=== PATIENT | female | born 1980 | race Two or more races ===

== ENCOUNTER 2018-04-23 21:46 | Inpatient (IN) | payer OTHER ==
[2018-04-23] MEDS ORDERED: NS 1,000 ML IV ONE (22:09)
[2018-04-23] MEDS ORDERED: ONDANSETRON 4 MG/2 ML VIAL IVP ONE (22:09)
--- NOTE | 2018-04-23 22:11 | EDPHY ---
H & P Stated Complaint: N/v, R side abd pain, unable to eat Time Seen by Provider: 04/23/18 21:54 HPI/ROS: Chief Complaint: Abdominal pain HPI: 37-year-old woman presenting with 2 days of central and right-sided abdominal pain. Pain is constant. Is currently 6/10. Feels better after she eats. Primarily right upper side and right flank as well. She did have some fevers and chills 4 days ago but those resolved. No cough. No diarrhea or constipation. No dark tarry stools or blood in per rectum. Has no chest pain or shortness of breath. She does have a history of a tubal ligation in the past. Last menstrua period was 1/2 months ago. ROS: 10 systems were reviewed and were negative except those elements noted in the HPI. PMH: Denies Social History: No smoking, no alcohol, no recreational drug use Family History: non-contributory Physical Exam: Gen: Awake, Alert, No Distress HEENT: Nose: no rhinorrhea Eyes: PERRLA, EOMI Mouth: Moist mucosa Neck: Supple, no JVD Chest: nontender, lungs clear to auscultation Heart: S1, S2 normal, no murmur Abd: Soft, moderate right upper quadrant tenderness, no guarding Back: Right moderate CVA tenderness, no midline tenderness Ext: no edema, non-tender Skin: no rash Neuro: CN II-XII intact, Sensation grossly intact, Strength 5/5 in bilateral upper and lower extremities - Personal History LMP (Females 10-55): Irregular Current Tetanus Diphtheria and Acellular Pertussis (TDAP): No - Medical/Surgical History Hx Asthma: No Hx Chronic Respiratory Disease: No Hx Diabetes: No Hx Cardiac Disease: No Hx Renal Disease: No Hx Cirrhosis: No Hx Alcoholism: No Hx HIV/AIDS: No Hx Splenectomy or Spleen Trauma: No Other PMH: Denies - Social History Smoking Status: Never smoked Constitutional: Initial Vital Signs Temperature (C) 37.1 C 04/23/18 21:50 Heart Rate 107 H 04/23/18 21:50 Respiratory Rate 17 04/23/18 21:50 Blood Pressure 122/48 H 04/23/18 21:50 O2 Sat (%) 100 04/23/18 21:50 O2 Delivery Mode Nasal Cannula O2 (L/minute) 2 Allergies/Adverse Reactions: No Known Allergies Allergy (Unverified 04/23/18 21:49) Medical Decision Making - Diagnostics Imaging Results: Imaging Impressions Abdomen CT 04/23/18 23:02 Impression: 1. Heterogeneous decreased enhancement right kidney suggestive of pyelonephritis versus less likely focal infarcts. 2. No CT evidence of appendicitis, abscess or bowel obstruction. 3. Mild thickening of the gallbladder wall and mild biliary ductal dilatation. If indicated, consider correlation at some point with right upper quadrant ultrasound to evaluate for possible gallstones and choledocholithiasis. 4. Mild splenomegaly. 5. Mildly enlarged uterus with fluid in the endometrial canal. 6. Umbilical hernia containing omental fat. Findings discussed with Dank Shields MD at 23:47 hour, 04/23/2018. ED Course/Re-evaluation: 37-year-old with abdominal pain weakness. Initial CBC results noted. Patient is mildly tachycardic, normotensive. Rectal exam performed by oh, brown stool. Sent for Hemoccult. Further questioning patient denies any menorrhagia any blood per rectum. Has had weakness for the past several days. Order CT scan of the abdomen. Type and screen. Plan for admission. Repeat i-STAT H&H from a direct blood draw confirms the patient's anemia. Pt anemia confirmed. Patient mildly tachycardic with a borderline blood pressure. IV fluids ordered. She does meet SIRS criteria. No focus of infection. CT scan results noted. Questionable pyelonephritis however urinalysis is negative. Possible choledocholithiasis. Will obtain ultrasound. Discussed with hospitalist. Plan for admission. Serum lactate is normal. Blood has been ordered. Ultrasound ordered of the the gallbladder. Common bile ductal dilatation with a pancreatic ductal stone. The hospitalist has discussed with GI. Plan for consultation. Patient is receiving blood. Critical Care Time: I spent a total of 40 minutes of critical care time in obtaining history, performing a physical exam, bedside monitoring of interventions, collecting and interpreting tests and discussion with consultants but not including time spent performing procedures. - Data Points Laboratory Results: Laboratory Results 04/23/18 22:15 04/23/18 22:15 04/24/18 04/24/18 04/23/18 01:09 00:00 23:01 WBC RBC Hgb POC Hgb 6.5 gm/dL L gm/dL (12.6-16.3) Hct POC Hct 19 % L % (38-47) MCV MCH MCHC RDW Plt Count MPV Neut % (Auto) Lymph % (Auto) [place] % (Auto) Eos % (Auto) Baso % (Auto) Nucleat RBC Rel Count Absolute Neuts (auto) Absolute Lymphs (auto) Absolute Monos (auto) Absolute Eos (auto) Absolute Basos (auto) Absolute Nucleated RBC Immature Gran % Immature Gran # Platelet Estimate Polychromasia Hypochromasia Microcytic Cells Oval Macrocytes Elliptocytes Smear Review By Absolute Retic Percent Retic VBG Lactic Acid 0.8 mmol/L mmol/L (0.7-2.1) POC Sodium 140 mEq/L mEq/L (135-145) Sodium POC Potassium 2.7 mEq/L L* mEq/L (3.3-5.0) Potassium POC Chloride 105 mEq/L mEq/L (97-110) Chloride Carbon Dioxide POC Total CO2 21 mEq/L L mEq/L (22-31) Anion Gap POC BUN 7 mg/dL mg/dL (7-23) BUN Creatinine POC Creatinine 0.8 mg/dL mg/dL (0.6-1.0) Estimated GFR Glucose POC Glucose 133 mg/dL H mg/dL (70-100) Calcium Iron TIBC Iron Saturation Ferritin Total Bilirubin AST ALT Alkaline Phosphatase Total Protein Albumin Lipase Beta HCG, Qual Urine Color YELLOW Urine Appearance CLEAR Urine pH 6.0 (5.0-7.5) Ur Specific [place] 1.017 (1.002-1.030) Urine Protein NEGATIVE (NEGATIVE) Urine Ketones NEGATIVE (NEGATIVE) Urine Blood NEGATIVE (NEGATIVE) Urine Nitrate NEGATIVE (NEGATIVE) Urine Bilirubin NEGATIVE (NEGATIVE) Urine Urobilinogen 4.0 EU H EU (0.2-1.0) Ur Leukocyte Esterase NEGATIVE (NEGATIVE) Urine Glucose NEGATIVE (NEGATIVE) Stool Occult Bld Scrn Patient ABO/Rh Antibody Screen Crossmatch IS Only 04/23/18 04/23/18 04/23/18 23:00 22:37 22:15 WBC RBC Hgb POC Hgb Hct POC Hct MCV MCH MCHC RDW Plt Count MPV Neut % (Auto) Lymph % (Auto) [place] % (Auto) Eos % (Auto) Baso % (Auto) Nucleat RBC Rel Count Absolute Neuts (auto) Absolute Lymphs (auto) Absolute Monos (auto) Absolute Eos (auto) Absolute Basos (auto) Absolute Nucleated RBC Immature Gran % Immature Gran # Platelet Estimate Polychromasia Hypochromasia Microcytic Cells Oval Macrocytes Elliptocytes Smear Review By Absolute Retic Percent Retic VBG Lactic Acid POC Sodium Sodium POC Potassium Potassium POC Chloride Chloride Carbon Dioxide POC Total CO2 Anion Gap POC BUN BUN Creatinine POC Creatinine Estimated GFR Glucose POC Glucose Calcium Iron 19.0 mcg/dL L mcg/dL (37.0-170.0) TIBC 312 ug/dL ug/dL (260-490) Iron Saturation 6 % L % (20-55) Ferritin 20.4 ng/mL ng/mL (6.2-264.0) Total Bilirubin AST ALT Alkaline Phosphatase Total Protein Albumin Lipase Beta HCG, Qual Urine Color Urine Appearance Urine pH Ur Specific [place] Urine Protein Urine Ketones Urine Blood Urine Nitrate Urine Bilirubin Urine Urobilinogen Ur Leukocyte Esterase Urine Glucose Stool Occult Bld Scrn NEGATIVE (NEGATIVE) Patient ABO/Rh B POSITIVE Antibody Screen NEGATIVE Crossmatch IS Only See Detail 04/23/18 04/23/18 04/23/18 22:15 22:15 22:15 WBC RBC Hgb POC Hgb Hct 19.8 % L % (38.0-47.0) POC Hct MCV MCH MCHC RDW Plt Count MPV Neut % (Auto) Lymph % (Auto) [place] % (Auto) Eos % (Auto) Baso % (Auto) Nucleat RBC Rel Count Absolute Neuts (auto) Absolute Lymphs (auto) Absolute Monos (auto) Absolute Eos (auto) Absolute Basos (auto) Absolute Nucleated RBC Immature Gran % Immature Gran # Platelet Estimate Polychromasia Hypochromasia Microcytic Cells Oval Macrocytes Elliptocytes Smear Review By Absolute Retic 0.030 10^6/uL L 10^6/uL (0.050-0.117) Percent Retic 1.18 % % (0.98-2.67) VBG Lactic Acid POC Sodium Sodium 131 mEq/L L mEq/L (135-145) POC Potassium Potassium 3.0 mEq/L L mEq/L (3.5-5.2) POC Chloride Chloride 103 mEq/L mEq/L (97-110) Carbon Dioxide 20 mEq/l L mEq/l (22-31) POC Total CO2 Anion Gap 8 mEq/L mEq/L (6-14) POC BUN BUN 10 mg/dL mg/dL (7-23) Creatinine 0.9 mg/dL mg/dL (0.6-1.0) POC Creatinine Estimated GFR > 60 Glucose 155 mg/dL H mg/dL (70-100) POC Glucose Calcium 7.9 mg/dL L mg/dL (8.5-10.4) Iron TIBC Iron Saturation Ferritin Total Bilirubin 1.1 mg/dL mg/dL (0.1-1.4) AST 40 IU/L IU/L (14-46) ALT 62 IU/L H IU/L (9-52) Alkaline Phosphatase 211 IU/L H IU/L (38-126) Total Protein 6.5 g/dL g/dL (6.3-8.2) Albumin 3.1 g/dL L g/dL (3.5-5.0) Lipase 130 IU/L IU/L (23-300) Beta HCG, Qual NEGATIVE Urine Color Urine Appearance Urine pH Ur Specific [place] Urine Protein Urine Ketones Urine Blood Urine Nitrate Urine Bilirubin Urine Urobilinogen Ur Leukocyte Esterase Urine Glucose Stool Occult Bld Scrn Patient ABO/Rh Antibody Screen Crossmatch IS Only 04/23/18 22:15 WBC 12.12 10^3/uL H 10^3/uL (3.80-9.50) RBC 2.80 10^6/uL L 10^6/uL (4.18-5.33) Hgb 5.3 g/dL L* g/dL (12.6-16.3) POC Hgb Hct 20.0 % L % (38.0-47.0) POC Hct MCV 71.4 fL L fL (81.5-99.8) MCH 18.9 pg L pg (27.9-34.1) MCHC 26.5 g/dL L g/dL (32.4-36.7) RDW 19.9 % H % (11.5-15.2) Plt Count 251 10^3/uL 10^3/uL (150-400) MPV 10.5 fL fL (8.7-11.7) Neut % (Auto) 80.8 % H % (39.3-74.2) Lymph % (Auto) 9.6 % L % (15.0-45.0) [place] % (Auto) 7.8 % % (4.5-13.0) Eos % (Auto) 0.4 % L % (0.6-7.6) Baso % (Auto) 0.2 % L % (0.3-1.7) Nucleat RBC Rel Count 0.2 % % (0.0-0.2) Absolute Neuts (auto) 9.80 10^3/uL H 10^3/uL (1.70-6.50) Absolute Lymphs (auto) 1.16 10^3/uL 10^3/uL (1.00-3.00) Absolute Monos (auto) 0.95 10^3/uL H 10^3/uL (0.30-0.80) Absolute Eos (auto) 0.05 10^3/uL 10^3/uL (0.03-0.40) Absolute Basos (auto) 0.02 10^3/uL 10^3/uL (0.02-0.10) Absolute Nucleated RBC 0.02 10^3/uL H 10^3/uL (0-0.01) Immature Gran % 1.2 % H % (0.0-1.1) Immature Gran # 0.14 10^3/uL H 10^3/uL (0.00-0.10) Platelet Estimate ADEQUATE (ADEQ) Polychromasia 2+ H Hypochromasia 3+ H Microcytic Cells 2+ H Oval Macrocytes 1+ H Elliptocytes 1+ H Smear Review By Pending Absolute Retic Percent Retic VBG Lactic Acid POC Sodium Sodium POC Potassium Potassium POC Chloride Chloride Carbon Dioxide POC Total CO2 Anion Gap POC BUN BUN Creatinine POC Creatinine Estimated GFR Glucose POC Glucose Calcium Iron TIBC Iron Saturation Ferritin Total Bilirubin AST ALT Alkaline Phosphatase Total Protein Albumin Lipase Beta HCG, Qual Urine Color Urine Appearance Urine pH Ur Specific [place] Urine Protein Urine Ketones Urine Blood Urine Nitrate Urine Bilirubin Urine Urobilinogen Ur Leukocyte Esterase Urine Glucose Stool Occult Bld Scrn Patient ABO/Rh Antibody Screen Crossmatch IS Only Medications Given: Acetaminophen (Tylenol) 650 mg PO Q4HRS PRN PRN Reason: Pain, Mild/Fever, Can Take PO Stop: 10/21/18 00:36 Last Admin: 04/24/18 02:39 Dose: 650 mg Piperacillin/Tazobactam/Dextrose (Zosyn 3.375 Gm (Premix)) 50 mls @ 100 mls/hr IV Q6HRS KAYODE PRN Reason: Protocol Stop: 05/24/18 00:59 Last Admin: 04/24/18 01:18 Dose: 50 mls Discontinued Medications Sodium Chloride (Ns) 1,000 mls @ 0 mls/hr IV ONCE ONE; Wide Open PRN Reason: Protocol Stop: 04/23/18 22:10 Last Admin: 04/23/18 22:20 Dose: 1,000 mls Sodium Chloride (Ns) 1,000 mls @ 0 mls/hr IV ONCE ONE PRN Reason: Wide Open Stop: 04/24/18 00:59 Last Admin: 04/24/18 01:34 Dose: 1,000 mls Ondansetron HCl (Zofran) 4 mg IVP EDNOW ONE Stop: 04/23/18 22:10 Last Admin: 04/23/18 22:21 Dose: 4 mg Potassium Chloride (Klor-Con) 40 meq PO ONCE ONE Stop: 04/24/18 04:05 Last Admin: 04/24/18 05:32 Dose: 20 meq Point of Care Test Results: Chemistry 04/23/18 23:01 POC Sodium 140 mEq/L mEq/L (135-145) POC Potassium 2.7 mEq/L L* mEq/L (3.3-5.0) POC Chloride 105 mEq/L mEq/L (97-110) POC Total CO2 21 mEq/L L mEq/L (22-31) POC BUN 7 mg/dL mg/dL (7-23) POC Creatinine 0.8 mg/dL mg/dL (0.6-1.0) POC Glucose 133 mg/dL H mg/dL (70-100) ISTAT H&H 04/23/18 23:01 POC Hgb 6.5 gm/dL L gm/dL (12.6-16.3) POC Hct 19 % L % (38-47) Departure - Departure Disposition: [facility] Acute Clinical Impression: Abdominal pain, Anemia Condition: Serious
[2018-04-23 22:48] LABS: PLATELET COUNT 251 10^3/uL (150-400)
[2018-04-23] MEDS ORDERED: IOPAMIDOL (ISOVUE-300) 100 ML BTL ONE (23:16)
[2018-04-24] MEDS ORDERED: PROMETHAZINE HCL 25 MG/ML INJ IVP PRN (00:37)
[2018-04-24] MEDS ORDERED: ONDANSETRON 4 MG/2 ML VIAL IVP PRN (00:37)
[2018-04-24] MEDS ORDERED: ONDANSETRON DISINTEGRATING 4 MG TAB PO PRN (00:37)
[2018-04-24] MEDS ORDERED: NS 1,000 ML IV SCH ×2 (00:45→20:00)
[2018-04-24] MEDS ORDERED: NS 1,000 ML IV ONE (00:58)
[2018-04-24] MEDS ORDERED: ACETAMINOPHEN 500 MG TAB ONE (01:06)
[2018-04-24] MEDS: ACETAMINOPHEN 325 MG TAB PO PRN ×4 (01:08→19:57)
[2018-04-24] MEDS ORDERED: PIPERACILLIN/TAZO 3.375 GM/DEX 50 ML IV ONE (01:15)
[2018-04-24] MEDS: PIPERACILLIN/TAZO 3.375 GM/DEX 50 ML IV SCH ×3 (01:18→12:32)
--- NOTE | 2018-04-24 04:11 | PDGENHP ---
History and Physical - Chief Complaint Flank pain - History of Present Illness 37 yo F w/ minimal PMHx presents with R flank pain. She tells me the R flank pain has been progressive in nature for the past few days. She has also noted subjective fevers and chills. She denies dysuria or frequency. On further questioning she also has noted fatigue for the last few weeks. She denies any signs of bleeding. Her last period was about 2 months ago. She denies melena or BRBPR. She has no medical history and takes no regular medications aside from occasional NSAIDs for pain. She has not seen her PCP in at least a year. Evaluation in the ED is notable for severe anemia as well as fever. CT demonstrated biliary dilation. This was followed by RUQ U/S, which confirmed cholelithiasis, CBD dilation (11 mm), and stone visualized at the head of the pancreas. Her temperature has risen to >39 while in the ED. She is being admitted for evaluation of severe anemia and suspected cholangitis. Case discussed with ED physician Dr. Shields and GI Dr. Ramos. Records reviewed and summarized above. History Information - Allergies/Home Medication List Allergies/Adverse Reactions: No Known Allergies Allergy (Unverified 04/23/18 21:49) I have personally reviewed and updated: family history, medical history - Past Medical History no pertinent PMH - Surgical History Reports: hernia repair - Family History Additional family history: Asked, denies - Social History Smoking Status: Never smoked Review of Systems Review of Systems: ROS: 10pt was reviewed & negative except for what was stated in HPI & below Physical Exam Physical Exam: Temp Pulse Resp BP Pulse Ox 39 C H 87 20 101/55 L 95 04/24/18 02:36 04/24/18 03:30 04/24/18 03:30 04/24/18 03:30 04/24/18 03:30 O2 (L/minute) 2 Constitutional: appears nourished, uncomfortable Eyes: PERRL, EOMI Ears, Nose, Mouth, Throat: moist mucous membranes, no oral mucosal ulcers Cardiovascular: systolic murmur, tachycardia Respiratory: no respiratory distress, clear to auscultation Gastrointestinal: normoactive bowel sounds, tenderness (R flank), No mancia's sign Skin: warm, normal color Musculoskeletal: full muscle strength, no muscle tenderness Neurologic: AAOx3, CN II-XII Intact Psychiatric: interacting appropriately, not anxious Lab Data & Imaging Review 04/23/18 22:15 04/23/18 22:15 WBC 12.12 10^3/uL (3.80-9.50) H 04/23/18 22:15 RBC 2.80 10^6/uL (4.18-5.33) L 04/23/18 22:15 Hgb 5.3 g/dL (12.6-16.3) L* 04/23/18 22:15 POC Hgb 6.5 gm/dL (12.6-16.3) L 04/23/18 23:01 Hct 19.8 % (38.0-47.0) L 04/23/18 22:15 POC Hct 19 % (38-47) L 04/23/18 23:01 MCV 71.4 fL (81.5-99.8) L 04/23/18 22:15 MCH 18.9 pg (27.9-34.1) L 04/23/18 22:15 MCHC 26.5 g/dL (32.4-36.7) L 04/23/18 22:15 RDW 19.9 % (11.5-15.2) H 04/23/18 22:15 Plt Count 251 10^3/uL (150-400) 04/23/18 22:15 MPV 10.5 fL (8.7-11.7) 04/23/18 22:15 Neut % (Auto) 80.8 % (39.3-74.2) H 04/23/18 22:15 Lymph % (Auto) 9.6 % (15.0-45.0) L 04/23/18 22:15 [place] % (Auto) 7.8 % (4.5-13.0) 04/23/18 22:15 Eos % (Auto) 0.4 % (0.6-7.6) L 04/23/18 22:15 Baso % (Auto) 0.2 % (0.3-1.7) L 04/23/18 22:15 Nucleat RBC Rel Count 0.2 % (0.0-0.2) 04/23/18 22:15 Absolute Neuts (auto) 9.80 10^3/uL (1.70-6.50) H 04/23/18 22:15 Absolute Lymphs (auto) 1.16 10^3/uL (1.00-3.00) 04/23/18 22:15 Absolute Monos (auto) 0.95 10^3/uL (0.30-0.80) H 04/23/18 22:15 Absolute Eos (auto) 0.05 10^3/uL (0.03-0.40) 04/23/18 22:15 Absolute Basos (auto) 0.02 10^3/uL (0.02-0.10) 04/23/18 22:15 Absolute Nucleated RBC 0.02 10^3/uL (0-0.01) H 04/23/18 22:15 Immature Gran % 1.2 % (0.0-1.1) H 04/23/18 22:15 Immature Gran # 0.14 10^3/uL (0.00-0.10) H 04/23/18 22:15 Platelet Estimate ADEQUATE (ADEQ) 04/23/18 22:15 Polychromasia 2+ H 04/23/18 22:15 Hypochromasia 3+ H 04/23/18 22:15 Microcytic Cells 2+ H 04/23/18 22:15 Oval Macrocytes 1+ H 04/23/18 22:15 Elliptocytes 1+ H 04/23/18 22:15 Absolute Retic 0.030 10^6/uL (0.050-0.117) L 04/23/18 22:15 Percent Retic 1.18 % (0.98-2.67) 04/23/18 22:15 VBG Lactic Acid 0.8 mmol/L (0.7-2.1) 04/24/18 01:09 POC Sodium 140 mEq/L (135-145) 04/23/18 23:01 Sodium 131 mEq/L (135-145) L 04/23/18 22:15 POC Potassium 2.7 mEq/L (3.3-5.0) L* 04/23/18 23:01 Potassium 3.0 mEq/L (3.5-5.2) L 04/23/18 22:15 POC Chloride 105 mEq/L (97-110) 04/23/18 23:01 Chloride 103 mEq/L (97-110) 04/23/18 22:15 Carbon Dioxide 20 mEq/l (22-31) L 04/23/18 22:15 POC Total CO2 21 mEq/L (22-31) L 04/23/18 23:01 Anion Gap 8 mEq/L (6-14) 04/23/18 22:15 POC BUN 7 mg/dL (7-23) 04/23/18 23:01 BUN 10 mg/dL (7-23) 04/23/18 22:15 Creatinine 0.9 mg/dL (0.6-1.0) 04/23/18 22:15 POC Creatinine 0.8 mg/dL (0.6-1.0) 04/23/18 23:01 Estimated GFR > 60 04/23/18 22:15 Glucose 155 mg/dL (70-100) H 04/23/18 22:15 POC Glucose 133 mg/dL (70-100) H 04/23/18 23:01 Calcium 7.9 mg/dL (8.5-10.4) L 04/23/18 22:15 Total Bilirubin 1.1 mg/dL (0.1-1.4) 04/23/18 22:15 AST 40 IU/L (14-46) 04/23/18 22:15 ALT 62 IU/L (9-52) H 04/23/18 22:15 Alkaline Phosphatase 211 IU/L (38-126) H 04/23/18 22:15 Total Protein 6.5 g/dL (6.3-8.2) 04/23/18 22:15 Albumin 3.1 g/dL (3.5-5.0) L 04/23/18 22:15 Lipase 130 IU/L (23-300) 04/23/18 22:15 Beta HCG, Qual NEGATIVE 04/23/18 22:15 Urine Color YELLOW 04/24/18 00:00 Urine Appearance CLEAR 04/24/18 00:00 Urine pH 6.0 (5.0-7.5) 04/24/18 00:00 Ur Specific [place] 1.017 (1.002-1.030) 04/24/18 00:00 Urine Protein NEGATIVE (NEGATIVE) 04/24/18 00:00 Urine Ketones NEGATIVE (NEGATIVE) 04/24/18 00:00 Urine Blood NEGATIVE (NEGATIVE) 04/24/18 00:00 Urine Nitrate NEGATIVE (NEGATIVE) 04/24/18 00:00 Urine Bilirubin NEGATIVE (NEGATIVE) 04/24/18 00:00 Urine Urobilinogen 4.0 EU (0.2-1.0) H 04/24/18 00:00 Ur Leukocyte Esterase NEGATIVE (NEGATIVE) 04/24/18 00:00 Urine Glucose NEGATIVE (NEGATIVE) 04/24/18 00:00 Stool Occult Bld Scrn NEGATIVE (NEGATIVE) 04/23/18 23:00 Patient ABO/Rh B POSITIVE 04/23/18 22:37 Antibody Screen NEGATIVE 04/23/18 22:37 Crossmatch IS Only See Detail 04/23/18 22:37 Imaging Review: Imaging Impressions Abdomen CT 04/23/18 23:02 Impression: 1. Heterogeneous decreased enhancement right kidney suggestive of pyelonephritis versus less likely focal infarcts. 2. No CT evidence of appendicitis, abscess or bowel obstruction. 3. Mild thickening of the gallbladder wall and mild biliary ductal dilatation. If indicated, consider correlation at some point with right upper quadrant ultrasound to evaluate for possible gallstones and choledocholithiasis. 4. Mild splenomegaly. 5. Mildly enlarged uterus with fluid in the endometrial canal. 6. Umbilical hernia containing omental fat. Findings discussed with Dank Shields MD at 23:47 hour, 04/23/2018. Assessment & Plan Assessment: 37 yo F presents with severe anemia and likely cholangitis. Plan: 1. Sepsis - Sepsis per 3/4 SIRS criteria (HR, WBC, T) present on admission. Most likely due to cholangitis noting RUQ/R flank pain and dilated CBD duct with stone visualized at the head of the pancreas. CT did demonstrate decreased enhancement in the right kidney suggestive of pyelonephritis, but her UA is non- infectious appearing and she denies urinary symptoms. - S/p 30 mL/kg fluid bolus - Zosyn IV for broad coverage - Blood and urine cultures pending - I discussed the case with Dr. Ramos of GI who requested patient be made NPO for likely ERCP this morning 2. Microcytic anemia - H/H 5.3/20 on admission. Patient denies signs of bleeding. Her last menstrual cycle was 2 months ago. Iron deficiency is likely, unclear if additional etiology is present. FOBT negative. - 2 u pRBCs to transfuse now - Will check iron panel, retic count, B12, TSH - Monitor CBC 3. Hypokalemia - Replete PRN 4. Decreased enhancement right kidney - suggestive of pyelonephritis versus less likely focal infarcts per radiology. Pyelonephritis seems less likely noting non-infectious UA and lack of urinary symptoms. - Monitor BMP Diet - NPO Code - Full Ppx - SCDs Dispo - Admit under inpatient status
[2018-04-24] MEDS: POTASSIUM CL 20 MEQ TAB PO ONE ×2 (05:32→06:01)
[2018-04-24 05:40] LABS: PLATELET COUNT 240 10^3/uL (150-400)
[2018-04-24] MEDS: POTASSIUM Cl (KCl) 40 MEQ in NS 1,000 ML IV SCH ×2 (06:02→17:40)
[2018-04-24] MEDS ORDERED: POTASSIUM CL 20 MEQ TAB PO ONE (06:47)
[2018-04-24] MEDS: HYDROmorphONE/DILAUDID 1 MG/ML INJ IVP PRN ×2 (08:48→19:54)
--- NOTE | 2018-04-24 08:55 | HOSPPROG ---
Hospitalist Progress Note Assessment/Plan: # cholecystitis, cholangitis - plan ERCP today (Dr Ramos) - discussed with Dr Arechiga who will perform cholecystectomy - cont zosyn # fever - d/t above # uncontrolled pain - cont dilaudid IV # Fe defic anemia, severe - possible d/t gynecologic problems, possible slight DIC from infection - s/p 2U PRBC, will transfuse another 2U # enlarged uterus with endometrial canal fluid - reports having her tubes tied 7 years ago - discussed with Dr Sevilla - likely ok with outpatient fu; needs pelvic US, possible endometrial bx and chronic management of menses # hypoK - replete via IVF Subjective: still complains of R flank pain; she reports recent heavy menses, but no period for 2 months Objective: Vital Signs Temp Pulse Resp BP Pulse Ox 37.4 C 77 23 H 102/48 L 98 04/24/18 07:39 04/24/18 07:39 04/24/18 07:39 04/24/18 07:39 04/24/18 07:39 Laboratory Results 04/24/18 05:20 04/24/18 05:20 04/23/18 04/24/18 04/25/18 05:59 05:59 05:59 Intake Total 3200 Balance 3200 chart reviewed 35 mins of direct patient care time - Physical Exam Constitutional: uncomfortable Cardiovascular: regular rate and rhythym, no murmur, rub, or gallop Respiratory: no respiratory distress, no rales or rhonchi, clear to auscultation Gastrointestinal: normoactive bowel sounds, other (soft, R sided pain), No guarding, No rebound, No distension ICD10 Worksheet Patient Problems: Problems Problem Status Onset Abdominal pain Acute Anemia Acute
--- NOTE | 2018-04-24 11:01 | GCON ---
[f rep st] CONSULTATION GI INPATIENT CONSULTATION DATE OF CONSULTATION: 04/24/2018 I was kindly requested to see the patient by Dr. Chava Cortez in consultation for a chief complaint of right flank pain. She is a 37-year-old female who has had the above for several days, along with subjective fever and chills. She had presented to the emergency department and was admitted to the hospital. Workup has included a CT scan of the abdomen and pelvis with IV contrast, which shows decreased enhancement of the right kidney with wedge-shaped areas with lack of enhancement and mild perinephric stranding. This is versus a normal left kidney. She has a urine dipstick, but no urinalysis. Besides the above, CT and an ultrasound also showed gallstones with an 11 mm CBD , and only mild gallbladder wall thickening. There was a question on ultrasound of a possible 5 mm calculus in the distal common bile duct. Liver function tests yesterday included an AST of 62 with an ALT of 211 and an alkaline phosphatase of 211. Today, her transaminases are normal, and her alk phos has decreased to 155. Normal lipase. She was also found to be anemic on admission with hematocrit of 20%. Her iron saturation is 6%, normal ferritin. Normal B12. She does state she has heavy menses. She denies rectal bleeding, maroon stools, melena. PAST MEDICAL HISTORY: 1. As above. 2. Hernia repair. 3. Otherwise, noncontributory. No known drug allergies. OUTPATIENT MEDICATIONS: Include occasional nonsteroidals. INPATIENT MEDICATIONS: Include Zosyn. SOCIAL HISTORY: She does not smoke. FAMILY HISTORY: Negative for similar pyelonephritis. REVIEW OF SYSTEMS: Positive pertinent review of systems as per my HPI. Otherwise, a complete review of systems is negative. PHYSICAL EXAM: CONSTITUTIONAL: Nontoxic. Low-grade fever. SKIN: Warm, dry. EYES: Pupils equal, round, reactive to light and accommodation. EAR, NOSE, MOUTH, AND THROAT Oropharynx without masses, moist mucosa. CARDIOVASCULAR: Normal S2, normal PMI. RESPIRATORY: Lungs clear to auscultation and percussion anteriorly. GASTROINTESTINAL: Soft, nontender. However, she does have somewhat exquisite right flank pain. NEUROLOGIC: Grossly nonfocal, cranial nerves grossly intact. PSYCHIATRIC: Orientation, insight appropriate. MUSCULOSKELETAL: Strength grossly normal throughout, normal station. LABORATORIES: Include the above. Beta HCG negative. Normal TSH. Hemoccult negative. Hematocrit after transfusion 24.2%. Normal platelet count. White count slightly elevated at 11.6 thousand. Potassium 3.2. Total bilirubin is 2.2, but her direct is 0.6. ASSESSMENT: 1. Right flank pain, fever. This is her presenting complaint. I suspect this is actually due to right-sided pyelonephritis. Her history and exam are classic , with a CT suggestive of right kidney infection. 2. Gallstones. I doubt this is related to her right flank pain. 3. Elevated liver function tests on admission, with a mildly dilated common bile duct. Indeed, suspect she did have an incidental CBD stone caught by the above testing on presentation. However, suspect now her CBD stone has passed, with her liver tests normalizing. 4. Slightly elevated total bilirubin. However, normal direct bilirubin, so may be Gilbert's syndrome only. 5. Anemia. Suspect due to heavy menses only. However, she did present quite low, with hematocrit of 20%. Therefore, a gastric or colonic source is possible. PLAN: 1. Treatment of her pyelonephritis as per the hospitalist service. They are getting a urinalysis and culture. 2. Surgery has been consulted. It may not be unreasonable for her to get a laparoscopic cholecystectomy at some point, when she has recovered from her pyelonephritis. She is relatively young and most likely will have trouble from her gallbladder in the future. In addition, she did have suspected transient choledocholithiasis. 3. Probable recent choledocholithiasis. As above, however, suspect she passed the stone. No ERCP needed at this juncture. 4. Once she has recovered from her pyelonephritis, prior to discharge, we will perform an upper endoscopy and colonoscopy. We will place her on clear liquids for now, to make prepping easier in the future. 5. Recheck liver function tests tomorrow, but suspect they will continue to improve. If not, she will require ERCP. Thank you for allowing me to help in the management of this patient. /[id number]/MODL MTDD
--- NOTE | 2018-04-24 12:02 | PDMN ---
Medical Necessity Medical necessity: [facility] M160 sepsis an other febrile illness: tachycardia, leukocytosis, fever, M35 anemia: -37 yo F with R flank pain, fever, chills, fatigue, X couple weeks, most likely cholangitis, CT demonstrates decreased enhancement in R kidney suggestive of pyelonephritis, H/H 5.3/20.0- 2 units PRBC will be transfused pt will be NPO- anticipate > 2 MN ongoing med nec care, further monitoring, eval and tx.
[2018-04-24] MEDS ORDERED: methylPREDNISolone SOD SUCC 125 MG/2 ML VIAL ONE (12:22)
[2018-04-24] MEDS ORDERED: EPINEPHrine 1 MG/ML INJ ONE (12:22)
[2018-04-24] MEDS ORDERED: methylPREDNISolone SOD SUCC 125 MG/2 ML VIAL IVP ONE (12:38)
[2018-04-24] MEDS: PANTOPRAZOLE SODIUM 40 MG TAB PO SCH (12:40)
--- NOTE | 2018-04-24 15:29 | PDGENHP ---
History and Physical - Chief Complaint R sided back pain - History of Present Illness 37yo F who presented to the ED last evening with R sided back pain. On admission , was also found to be anemic and has since received packed cell transfusion. Describes a constant R sided back pain which has been present for the past few days. She denies any fevers or chills at home but does endorse 1 episode of vomiting yesterday prior to her presentation here at the ED. Pain persists on my exam. Denies abdominal pain currently. History Information - Allergies/Home Medication List Allergies/Adverse Reactions: No Known Allergies Allergy (Verified 04/24/18 08:54) Home Medications: Ibuprofen [Motrin (*)] 200 - 600 mg PO TID PRN 04/24/18 [Last Taken 04/23/18] I have personally reviewed and updated: medical history, social history, surgical history - Past Medical History no pertinent PMH - Surgical History Reports: hernia repair Additional surgical history: tubal ligation, open umbilical hernia at [facility] - Family History Additional family history: Asked, denies - Social History Smoking Status: Never smoked Review of Systems Review of Systems: ROS: 10pt was reviewed & negative except for what was stated in HPI & below Physical Exam Physical Exam: Temp Pulse Resp BP Pulse Ox 37.3 C 93 13 108/58 L 97 04/24/18 10:10 04/24/18 14:00 04/24/18 14:00 04/24/18 14:00 04/24/18 14:00 O2 (L/minute) 2 Constitutional: no apparent distress, appears nourished, not in pain Eyes: PERRL, anicteric sclera, EOMI Ears, Nose, Mouth, Throat: moist mucous membranes, hearing normal, ears appear normal, no oral mucosal ulcers Cardiovascular: regular rate and rhythym, no murmur, rub, or gallop, No edema Respiratory: no respiratory distress, no rales or rhonchi, clear to auscultation Gastrointestinal: normoactive bowel sounds, soft, non-tender abdomen, no palpable masses, other (inframumbilical scar c/e previous surgical history) Genitourinary: no bladder fullness, no bladder tenderness Skin: warm, normal color, no rashes or abrasions, no fluctuance, no induration, No mottled Musculoskeletal: full muscle strength, no muscle tenderness, normal joint ROM, no joint effusions Psychiatric: interacting appropriately, not anxious, not encephalopathic, thought process linear Lymph, Heme, Immunologic: no cervical LAD, no supraclavicular LAD Lab Data & Imaging Review 04/24/18 05:20 04/24/18 05:20 WBC 11.67 10^3/uL (3.80-9.50) H 04/24/18 05:20 RBC 3.17 10^6/uL (4.18-5.33) L 04/24/18 05:20 Hgb 6.9 g/dL (12.6-16.3) L 04/24/18 05:20 POC Hgb 6.5 gm/dL (12.6-16.3) L 04/23/18 23:01 Hct 24.2 % (38.0-47.0) L 04/24/18 05:20 POC Hct 19 % (38-47) L 04/23/18 23:01 MCV 76.3 fL (81.5-99.8) L 04/24/18 05:20 MCH 21.8 pg (27.9-34.1) L 04/24/18 05:20 MCHC 28.5 g/dL (32.4-36.7) L 04/24/18 05:20 RDW 20.2 % (11.5-15.2) H 04/24/18 05:20 Plt Count 240 10^3/uL (150-400) 04/24/18 05:20 MPV 10.3 fL (8.7-11.7) 04/24/18 05:20 Neut % (Auto) 79.8 % (39.3-74.2) H 04/24/18 05:20 Lymph % (Auto) 9.9 % (15.0-45.0) L 04/24/18 05:20 Alpine % (Auto) 8.7 % (4.5-13.0) 04/24/18 05:20 Eos % (Auto) 0.3 % (0.6-7.6) L 04/24/18 05:20 Baso % (Auto) 0.2 % (0.3-1.7) L 04/24/18 05:20 Nucleat RBC Rel Count 0.2 % (0.0-0.2) 04/24/18 05:20 Absolute Neuts (auto) 9.33 10^3/uL (1.70-6.50) H 04/24/18 05:20 Absolute Lymphs (auto) 1.15 10^3/uL (1.00-3.00) 04/24/18 05:20 Absolute Monos (auto) 1.01 10^3/uL (0.30-0.80) H 04/24/18 05:20 Absolute Eos (auto) 0.03 10^3/uL (0.03-0.40) 04/24/18 05:20 Absolute Basos (auto) 0.02 10^3/uL (0.02-0.10) 04/24/18 05:20 Absolute Nucleated RBC 0.02 10^3/uL (0-0.01) H 04/24/18 05:20 Immature Gran % 1.1 % (0.0-1.1) 04/24/18 05:20 Immature Gran # 0.13 10^3/uL (0.00-0.10) H 04/24/18 05:20 Platelet Estimate ADEQUATE (ADEQ) 04/24/18 05:20 Polychromasia 2+ H 04/24/18 05:20 Hypochromasia 2+ H 04/24/18 05:20 Microcytic Cells 2+ H 04/24/18 05:20 Oval Macrocytes 1+ H 04/24/18 05:20 Elliptocytes 1+ H 04/24/18 05:20 Smear Review By Abbey BROUSSARD MD 04/24/18 05:20 Absolute Retic 0.030 10^6/uL (0.050-0.117) L 04/23/18 22:15 Percent Retic 1.18 % (0.98-2.67) 04/23/18 22:15 VBG Lactic Acid 0.8 mmol/L (0.7-2.1) 04/24/18 01:09 POC Sodium 140 mEq/L (135-145) 04/23/18 23:01 Sodium 138 mEq/L (135-145) 04/24/18 05:20 POC Potassium 2.7 mEq/L (3.3-5.0) L* 04/23/18 23:01 Potassium 3.2 mEq/L (3.5-5.2) L 04/24/18 05:20 POC Chloride 105 mEq/L (97-110) 04/23/18 23:01 Chloride 112 mEq/L (97-110) H 04/24/18 05:20 Carbon Dioxide 20 mEq/l (22-31) L 04/24/18 05:20 POC Total CO2 21 mEq/L (22-31) L 04/23/18 23:01 Anion Gap 6 mEq/L (6-14) 04/24/18 05:20 POC BUN 7 mg/dL (7-23) 04/23/18 23:01 BUN 8 mg/dL (7-23) 04/24/18 05:20 Creatinine 0.8 mg/dL (0.6-1.0) 04/24/18 05:20 POC Creatinine 0.8 mg/dL (0.6-1.0) 04/23/18 23:01 Estimated GFR > 60 04/24/18 05:20 Glucose 105 mg/dL (70-100) H 04/24/18 05:20 POC Glucose 133 mg/dL (70-100) H 04/23/18 23:01 Calcium 7.2 mg/dL (8.5-10.4) L 04/24/18 05:20 Iron 19.0 mcg/dL (37.0-170.0) L 04/23/18 22:15 TIBC 312 ug/dL (260-490) 04/23/18 22:15 Iron Saturation 6 % (20-55) L 04/23/18 22:15 Ferritin 20.4 ng/mL (6.2-264.0) 04/23/18 22:15 Total Bilirubin 2.2 mg/dL (0.1-1.4) H 04/24/18 05:20 Conjugated Bilirubin 0.6 mg/dL (0.0-0.5) H 04/24/18 05:20 Unconjugated Bilirubin 1.6 mg/dL (0.0-1.1) H 04/24/18 05:20 AST 31 IU/L (14-46) 04/24/18 05:20 ALT 48 IU/L (9-52) 04/24/18 05:20 Alkaline Phosphatase 155 IU/L (38-126) H 04/24/18 05:20 Total Protein 5.9 g/dL (6.3-8.2) L 04/24/18 05:20 Albumin 2.6 g/dL (3.5-5.0) L 04/24/18 05:20 Lipase 130 IU/L (23-300) 04/23/18 22:15 Vitamin B12 700 pg/mL (239-931) 04/24/18 02:15 TSH 1.760 uIU/mL (0.465-4.680) 04/24/18 02:15 Beta HCG, Qual NEGATIVE 04/23/18 22:15 Urine Color YELLOW 04/24/18 00:00 Urine Appearance CLEAR 04/24/18 00:00 Urine pH 6.0 (5.0-7.5) 04/24/18 00:00 Ur Specific [place] 1.017 (1.002-1.030) 04/24/18 00:00 Urine Protein NEGATIVE (NEGATIVE) 04/24/18 00:00 Urine Ketones NEGATIVE (NEGATIVE) 04/24/18 00:00 Urine Blood NEGATIVE (NEGATIVE) 04/24/18 00:00 Urine Nitrate NEGATIVE (NEGATIVE) 04/24/18 00:00 Urine Bilirubin NEGATIVE (NEGATIVE) 04/24/18 00:00 Urine Urobilinogen 4.0 EU (0.2-1.0) H 04/24/18 00:00 Ur Leukocyte Esterase NEGATIVE (NEGATIVE) 04/24/18 00:00 Urine Glucose NEGATIVE (NEGATIVE) 04/24/18 00:00 Stool Occult Bld Scrn NEGATIVE (NEGATIVE) 04/23/18 23:00 Patient ABO/Rh B POSITIVE 04/23/18 22:37 Antibody Screen NEGATIVE 04/23/18 22:37 Crossmatch IS Only See Detail 04/23/18 22:37 Donor Blood Type B POS 04/24/18 13:13 Donor Unit # [id number] 04/24/18 13:13 Reaction Clerical Check DONE 04/24/18 13:13 Pre-Trans Blood Type B POSITIVE 04/24/18 13:13 Pre-Trans Vis Hemolysis NEGATIVE 04/24/18 13:13 Pre-Trans BROOKS NEGATIVE 04/24/18 13:13 Post-Trans Blood Type B POSITIVE 04/24/18 13:13 Post-Tx Visible Hemolys NEGATIVE 02/28/19 13:13 Visualized and Interpreted imaging results: Yes Interpretation: CT and US: gallstones, GBW thickened, CBD enlarged Assessment & Plan Assessment: Abdominal pain (Acute) Anemia (Acute) Plan: 37yo F c multiple medical issues and likely cholecystitis, ? choledocholithiasis - agree with medeical optimization - IV abx for poss cholangitis vs pyelo - to OR for lap marlin with IOc to interrogate CBD. Pt was evaluated and consented with medical equipment repair technician
--- NOTE | 2018-04-24 15:45 | ASMTCASEMG ---
Living Arrangements What is your living Answers: With Other Relative(s) arrangement? Who do you live with? Type Of Residence What kind of residence do Answers: Apartment you live in? Discharge Plan Comments Coordination Status Comments Notes: Patient is a 37yo female, Israeli speaking,who presents with severe anemia and likely cholangitis. Patient is self-pay, Lily notified to screen for emergency Medicaid. No therapies ordered at this time. D/C plan TBD. CM will follow. Date Signed: 04/24/2018 03:44 PM Electronically Signed By:Elizabeth Brown LCSW
[2018-04-25] MEDS ORDERED: NS 1,000 ML IV ONE (00:28)
[2018-04-25] MEDS: HYDROmorphONE/DILAUDID 1 MG/ML INJ IVP PRN ×3 (02:23→16:14)
[2018-04-25 03:55] LABS: PLATELET COUNT 279 10^3/uL (150-400)
[2018-04-25] MEDS ORDERED: IOPAMIDOL (ISOVUE-M 300) 15 ML VIAL ONE ×2 (06:45→08:22)
[2018-04-25] MEDS ORDERED: EPINEPHrine 1 MG/ML INJ ONE (06:45)
[2018-04-25] MEDS ORDERED: BUPIVACAINE 0.25% 30 ML SDV ONE (06:45)
--- NOTE | 2018-04-25 06:54 | PDANEPAE ---
ANE Past Medical History - Cardiovascular History Hx Hypertension: No Hx Arrhythmias: No Hx Chest Pain: No Hx Coronary Artery / Peripheral Vascular Disease: No Hx CHF / Valvular Disease: No Hx Palpitations: No - Pulmonary History Hx COPD: No Hx Asthma/Reactive Airway Disease: No Hx Recent Upper Respiratory Infection: No Hx Oxygen in Use at Home: No Hx Sleep Apnea: No Sleep Apnea Screening Result - Last Documented: Negative - Endocrine History Hx Diabetes: No Hypothyroid: No Hyperthyroid: No Obesity: no - Liver History Hx Hepatic Disorders: Yes - Other Health History Other Health History: Severe anemia - Chronic Pain History Chronic Pain: No ANE Review of Systems Review of Systems: - Exercise capacity METS (RN): 4 METS ANE Patient History - Allergies Allergies/Adverse Reactions: No Known Allergies Allergy (Verified 04/24/18 08:54) - Home Medications Home Medications: Ibuprofen [Motrin (*)] 200 - 600 mg PO TID PRN 04/24/18 [Last Taken 04/23/18] - NPO status NPO Since - Liquids (Date): 04/25/18 NPO Since - Liquids (Time): 00:00 NPO Since - Solids (Date): 04/24/18 NPO Since - Solids (Time): 18:00 - Smoking Hx Smoking Status: Never smoked ANE Labs/Vital Signs - Labs Result Diagrams: 04/25/18 03:45 04/25/18 03:45 - Vital Signs Vital Signs: reviewed preoperatively; see RN documention for details Blood Pressure: 89/48 Heart Rate: 57 Respiratory Rate: 16 O2 Sat (%): 98 Height: 157.48 cm Weight: 70.307 kg ANE Physical Exam - Airway Neck exam: FROM ANE Anesthesia Plan Anesthesia Plan: general endotracheal anesthesia
[2018-04-25] MEDS ORDERED: LR 1,000 ML IV ONE (07:13)
[2018-04-25] MEDS ORDERED: fentaNYL 100 MCG/2 ML INJ ONE ×6 (07:14→12:10)
[2018-04-25] MEDS ORDERED: PROPOFOL 200 MG/20 ML VIAL ONE (07:15)
[2018-04-25] MEDS ORDERED: ROCURONIUM 50 MG/5 ML VIAL ONE (07:18)
[2018-04-25] MEDS ORDERED: SUCCINYLCHOLINE CHLORIDE 200 MG/10 ML SYR IVP ONE (07:19)
[2018-04-25] MEDS ORDERED: METOCLOPRAMIDE 10 MG/2 ML VIAL ONE (07:20)
[2018-04-25] MEDS ORDERED: RANITIDINE 50 MG/2 ML VIAL ONE (07:21)
[2018-04-25] MEDS ORDERED: ePHEDrine SULFATE 25 MG/5 ML SYR ONE ×2 (07:33→08:14)
[2018-04-25] MEDS ORDERED: DEXAMETHASONE 4 MG/ML VIAL ONE (07:42)
[2018-04-25] MEDS ORDERED: ONDANSETRON 4 MG/2 ML VIAL ONE (07:55)
[2018-04-25] MEDS ORDERED: PHENYLEPHRINE HCL 100 MCG/ML SYR ONE (08:14)
[2018-04-25] MEDS ORDERED: NALOXONE HCL 0.4 MG/ML INJ IVP PRN ×3 (08:34→12:31)
[2018-04-25] MEDS ORDERED: PROMETHAZINE HCL 25 MG/ML INJ IVP PRN (08:34)
[2018-04-25] MEDS ORDERED: MEPERIDINE 25 MG/0.5 ML AMP IVP PRN (08:34)
[2018-04-25] MEDS ORDERED: ALBUTEROL 3 ML DEYVIAL IH PRN (08:34)
[2018-04-25] MEDS ORDERED: LR 500 ML IV PRN (08:34)
[2018-04-25] MEDS ORDERED: ONDANSETRON 4 MG/2 ML VIAL IVP PRN (08:34)
[2018-04-25] MEDS ORDERED: DEXAMETHASONE 4 MG/ML VIAL IVP PRN (08:34)
[2018-04-25] MEDS ORDERED: GLYCOPYRROLATE 0.2 MG/1 ML VIAL ONE ×2 (08:37→08:38)
[2018-04-25] MEDS ORDERED: NEOSTIGMINE METHYLSULFATE 5 MG/5 ML SYR ONE (08:38)
--- NOTE | 2018-04-25 09:04 | POSTOPPROG ---
Post Op Note Date of Operation: 04/25/18 Surgeon: Teddy Arechiga Anesthesiologist: Joi Anesthesia: GET(General Endotracheal) Pre-op Diagnosis: Cholecystitis Post-op Diagnosis: Cholecystitis, choledocholithiasis Procedure: Lap marlin with IOC Findings: edematous, swollen GBW. Multiple fulling defects Inf/Abcess present in the surg proc area at time of surgery?: No EBL: Minimal Specimen(s): GB
[2018-04-25] MEDS ORDERED: HYDROmorphONE/DILAUDID 2 MG/ML INJ ONE ×2 (09:14→12:10)
[2018-04-25] MEDS ORDERED: ACETAMINOPHEN 325 MG TAB ONE (09:15)
[2018-04-25] MEDS: fentaNYL 100 MCG/2 ML INJ IVP PRN ×3 (09:18→09:37)
[2018-04-25] MEDS: HYDROmorphONE/DILAUDID 2 MG/ML INJ IVP PRN ×3 (09:21→09:40)
[2018-04-25] MEDS ORDERED: PROPOFOL/EMULSION 500 MG/50 ML BOTTLE IV ONE (10:08)
--- NOTE | 2018-04-25 10:15 | POSTANESTH ---
Post Anesthetic Evaluation Cardiovascular Status: Normal, Stable Respiratory Status: Normal, Stable Level of Consciousness/Mental Status: Mildly Sleepy, Arousable Pain Control: Adequate, Prn Tx Ordered Nausea/Vomiting Control: Adequate, Prn Tx Ordered Complications Possibly Related to Anesthesia: None Noted
[2018-04-25] MEDS ORDERED: IOTHALAMATE MEG (CONRAY) 50 ML VIAL IV ONE (10:18)
--- NOTE | 2018-04-25 10:20 | PDANEPAE ---
ANE History of Present Illness 37 year old female s/p lap marlin today for ERCP to remove duct stones. History of iron deficiency anemia. Received blood transfusion this admission and developed an allergic reaction. Transfusion was discontinued. ANE Past Medical History - Cardiovascular History Hx Hypertension: No Hx Arrhythmias: No Hx Chest Pain: No Hx Coronary Artery / Peripheral Vascular Disease: No Hx CHF / Valvular Disease: No Hx Palpitations: No - Pulmonary History Hx COPD: No Hx Asthma/Reactive Airway Disease: No Hx Recent Upper Respiratory Infection: No Hx Oxygen in Use at Home: No Hx Sleep Apnea: No Sleep Apnea Screening Result - Last Documented: Negative - Endocrine History Hx Diabetes: No Hypothyroid: No Hyperthyroid: No Obesity: no - Liver History Hx Hepatic Disorders: Yes - Other Health History Other Health History: Severe anemia - Chronic Pain History Chronic Pain: No ANE Review of Systems Review of Systems: - Exercise capacity METS (RN): 4 METS ANE Patient History - Allergies Allergies/Adverse Reactions: No Known Allergies Allergy (Verified 04/24/18 08:54) - Home Medications Home Medications: Ibuprofen [Motrin (*)] 200 - 600 mg PO TID PRN 04/24/18 [Last Taken 04/23/18] - NPO status NPO Since - Liquids (Date): 04/25/18 NPO Since - Liquids (Time): 00:00 NPO Since - Solids (Date): 04/24/18 NPO Since - Solids (Time): 18:00 - Smoking Hx Smoking Status: Never smoked ANE Labs/Vital Signs - Labs Result Diagrams: 04/25/18 03:45 04/25/18 03:45 - Vital Signs Blood Pressure: 103/60 Heart Rate: 57 Respiratory Rate: 19 O2 Sat (%): 96 Height: 157.48 cm Weight: 70.307 kg ANE Physical Exam - Pulmonary Pulmonary: no respiratory distress - Cardiovascular Cardiovascular: regular rate and rhythym - ASA Status ASA Status: III (Could not evalutate airway secondary to patient sedation. No ROS done.) ANE Anesthesia Plan Anesthesia Plan: general endotracheal anesthesia
[2018-04-25] MEDS ORDERED: LABETALOL HCL 5 MG/ML 20 ML MDV IVP PRN ×2 (10:54→12:31)
[2018-04-25] MEDS ORDERED: fentaNYL 100 MCG/2 ML INJ IVP PRN ×2 (10:54→12:31)
[2018-04-25] MEDS ORDERED: INDOMETHACIN 50 MG SUPP PR ONE (11:01)
--- NOTE | 2018-04-25 12:19 | SOAPPROG ---
SOAP Progress Note Assessment/Plan: Assessment/Plan: 1. Pyelonephritis. GNR on urine cx. On levaquin. As per hospitalist. - d/c flagyl (not needed) 2. s/p marlin, with positive IOC for cbd stones. - ERCP today. Higher risk, being postop, with above infection, etc., but suspect will do well. 3. Anemia. Suspect heavy menses. Will check upper G.I. tract with EGD. 04/25/18 12:19 Subjective: cc: UTI No rigor, chills, sweats, vomiting. Objective: Vital Signs Temp Pulse Resp BP Pulse Ox 37.1 C 57 L 23 H 101/58 L 96 04/25/18 10:04 04/25/18 10:20 04/25/18 10:35 04/25/18 10:32 04/25/18 10:35 Laboratory Results 04/25/18 03:45 04/25/18 03:45 04/24/18 04/25/18 04/26/18 05:59 05:59 05:59 Intake Total 7499 600 Output Total 1000 10 Balance 6499 590 Physical Exam - Physical Exam General Appearance: WD/WN, alert, no apparent distress EENT: PERRL/EOMI, normal ENT inspection, pharynx normal, TMs normal Neck: non-tender, full range of motion, supple, normal inspection Respiratory: chest non-tender, lungs clear, normal breath sounds Cardiac/Chest: normal peripheral pulses, regular rate, rhythm Peripheral Pulses: 2+: carotid (R), carotid (L), femoral (R), femoral (L), dorsalis-pedis (R), dorsalis-pedis (L) Abdomen: normal bowel sounds, non-tender, soft Pelvic Exam: deferred Rectal: deferred Back: Normal inspection Skin: normal color, warm/dry Lymphatic: no adenopathy Extremities: normal range of motion, non-tender, normal inspection, normal capillary refill Neuro/Psych: no motor/sensory deficits, alert, normal mood/affect, oriented x 3 ICD10 Worksheet Patient Problems: Problems Problem Status Onset Abdominal pain Acute Anemia Acute
--- NOTE | 2018-04-25 12:28 | GIREPORT ---
[facility] - Endoscopy Department Patient Name: Nikki Burgos Procedure Date: 04/25/2018 10:23 AM Patient Type: Inpatient Attending MD/ ER Physician: Td Ramos MD Procedure: ERCP Indications: Filling defects on intraoperative cholangiogram Providers: Td Ramos MD, [facility] Referring MD: Teddy Arechiga MD; [facility] Hospitalist service Medicines: See the Anesthesia note for documentation of the administered medicatio ns Complications: No immediate complications. Description of Procedure: After obtaining informed consent, the scope was passed under direct vis ion. Throughout the procedure, the patient's blood pressure, pulse, and oxyg en saturations were monitored continuously. The Duodenalscope was introduc ed through the mouth, and advanced to the duodenum and used to inject cont rast into the bile duct. Findings: Normal esophagus, stomach, duodenum, ampulla. Bx done of the duodenum, to r/o a selective iron-deficiency sprue (doubt). Cholangiogram with four filling defects, with "square" shoulders, 1 cm each. No bile leak, etc. A 12 mm biliary sphincterotomy was made with a traction (standard) sphincterotome using ERBE electrocautery. There was no post-sphincterot panda bleeding. Then, a 12 mm balloon was used to try and individually remove d each stone, one at a time. However, despite four attempts, could not ev en remove the most distal. At that point, the decision was made to not spe nd an additional hour using a basket to remove the stones, as this might be u ndue risk to her cystic duct damir for leak. Instead, a 10 [address]ic biliary stent was placed, with good flow. Estimated Blood Loss: none. Post Op Diagnosis: - Four large, square stones, as above. Recommendation: - Stented, as above. For the next six weeks, with the stent in place, s he will be protected. During this time, the stones will "bang" against the stent, becoming smaller and softer. In addition, will use urosodiol for that six weeks, to soften them more. We will then perform an elective outpt. ERCP in about six weeks, to remove the stent and basket out the stones, at a time it will be safer for her cystic duct remnant. - clears, when o.k. with surgery - duodenal bx pending - we will see if she's clinically doing well enough tomorrow, to start a abraham bowel prep. We will then plan on doing an inpt. colonoscopy, for her adm'x Hct of 20%, prior to discharge. Thanks! Attending Participation: I personally performed the entire procedure. Rachel Appiah MD Td Ramos MD 04/25/2018 12:27:50 PM This report has been signed electronicallyPeter MD Rachel Number of Addenda: 0 Note Initiated On: 04/25/2018 10:23 AM [email or web address]
[2018-04-25] MEDS: D5W 1/2 NS W/ 20 KCl/L 1,000 ML IV SCH (13:18)
--- NOTE | 2018-04-25 13:36 | HOSPPROG ---
Hospitalist Progress Note Assessment/Plan: # cholecystitis, choledocholithiasis s/p cholecystectomy and ERCP with stone removal and stent placement - cont levaquin # ?pyelonephritis - this seems more reactive reactive than primary me given non- inflammatory urine on UA - GNR noted on UCx - covered by levaquin regardless # fever - d/t above # uncontrolled pain - should improve post-op - cont dilaudid IV # Fe defic anemia, severe - possible d/t gynecologic problems, possible slight DIC from infection - s/p 4U PRBC with improvement - planning colonoscopy to evaluate prior to dc # allergic reaction - transfusion reaction labs sent; also could be d/t zosyn - resolved # enlarged uterus with endometrial canal fluid - reports having her tubes tied 7 years ago - discussed with Dr Sevilla - likely ok with outpatient fu; needs pelvic US, possible endometrial bx and chronic management of menses # hypoK - replete via IVF Subjective: s/p cholecystectomy and ERCP Objective: Vital Signs Temp Pulse Resp BP Pulse Ox 36.5 C 51 L 14 103/44 L 97 04/25/18 13:06 04/25/18 13:06 04/25/18 13:06 04/25/18 13:06 04/25/18 13:06 Laboratory Results 04/25/18 03:45 04/25/18 03:45 04/24/18 04/25/18 04/26/18 05:59 05:59 05:59 Intake Total 7499 1150 Output Total 1000 10 Balance 6499 1140 high risk with two procedures today - Physical Exam Constitutional: other (somnolent but arousable) Cardiovascular: regular rate and rhythym, no murmur, rub, or gallop Respiratory: no respiratory distress, no rales or rhonchi, clear to auscultation Gastrointestinal: normoactive bowel sounds, other (soft, diffusely TTP), No guarding, No rebound ICD10 Worksheet Patient Problems: Problems Problem Status Onset Abdominal pain Acute Anemia Acute
[2018-04-25] MEDS: PANTOPRAZOLE SODIUM 40 MG TAB PO SCH ×2 (14:04→15:06)
[2018-04-25] MEDS: oxyCODONE IR 5 MG TAB PO PRN ×2 (18:35→21:18)
[2018-04-25] MEDS: URSODIOL 300 MG CAP PO SCH (20:31)
[2018-04-26] MEDS: oxyCODONE IR 5 MG TAB PO PRN ×5 (00:22→20:12)
[2018-04-26] MEDS: D5W 1/2 NS W/ 20 KCl/L 1,000 ML IV SCH (02:32)
[2018-04-26 04:39] LABS: PLATELET COUNT 298 10^3/uL (150-400)
[2018-04-26] MEDS: PANTOPRAZOLE SODIUM 40 MG TAB PO SCH (07:56)
[2018-04-26] MEDS: URSODIOL 300 MG CAP PO SCH ×2 (07:56→19:54)
[2018-04-26] MEDS: ACETAMINOPHEN 325 MG TAB PO PRN ×2 (07:58→15:49)
--- NOTE | 2018-04-26 12:27 | HOSPPROG ---
Hospitalist Progress Note Assessment/Plan: # cholecystitis, choledocholithiasis s/p cholecystectomy and ERCP with stone removal and stent placement - cont levaquin # ?pyelonephritis - this seems more reactive reactive than primary me given non- inflammatory urine on UA - GNR noted on UCx - covered by levaquin regardless # fever - d/t above # uncontrolled pain - improving; vo snot needed dilaudid IV today # Fe defic anemia, severe - s/p 4U PRBC with improvement - planning colonoscopy to evaluate prior to dc # allergic reaction - transfusion reaction labs sent; also could be d/t zosyn - resolved # enlarged uterus with endometrial canal fluid - reports having her tubes tied 7 years ago - discussed with Dr Sevilla - likely ok with outpatient fu - check pelvic US # hypoK - replete via IVF Subjective: tearful - complains of pain in her arm after having an iv placement attempt; mild abd pain; +BM Objective: Vital Signs Temp Pulse Resp BP Pulse Ox 36.8 C 66 14 109/65 94 04/26/18 11:03 04/26/18 11:03 04/26/18 11:03 04/26/18 11:03 04/26/18 11:03 Laboratory Results 04/26/18 04:15 04/26/18 04:15 04/25/18 04/26/18 04/27/18 05:59 05:59 05:59 Intake Total 7499 3150 Output Total 1000 10 Balance 6499 3140 - Physical Exam Constitutional: uncomfortable Cardiovascular: regular rate and rhythym, no murmur, rub, or gallop Respiratory: no respiratory distress, no rales or rhonchi, clear to auscultation Gastrointestinal: normoactive bowel sounds, no palpable masses, other (mild RUQ pain), No guarding, No rebound ICD10 Worksheet Patient Problems: Problems Problem Status Onset Abdominal pain Acute Anemia Acute
--- NOTE | 2018-04-26 13:29 | SOAPPROG ---
SOAP Progress Note Assessment/Plan: Assessment: STATUS POST LAP CHOLY AN ERCP FOR SEVERE CHOLECYSTITIS AND COMMON DUCT STONES/ STENT IN PLACE HEMATOCRIT STABLE/WBC 9 K/BILIRUBIN 8 ALTHOUGH THE PATIENT IS NONICTERIC/LFTS IMPROVED HEENT NONICTERIC WITHOUT ADENOPATHY CHEST CLEAR AND SYMMETRIC COR REGULAR RHYTHM ABDOMEN SOFT NONTENDER AFEBRILE/VITAL SIGNS STABLE/URINE OUTPUT ADEQUATE Plan: CLEAR LIQUIDS AND CONTINUE ANTIBIOTICS/HOME IN 1-2 DAYS ON ORAL ANTIBIOTICS 04/26/18 13:27 Objective: Vital Signs Temp Pulse Resp BP Pulse Ox 36.8 C 66 14 109/65 94 04/26/18 11:03 04/26/18 11:03 04/26/18 11:03 04/26/18 11:03 04/26/18 11:03 Laboratory Results 04/26/18 04:15 04/26/18 04:15 04/25/18 04/26/18 04/27/18 05:59 05:59 05:59 Intake Total 7499 3150 Output Total 1000 10 Balance 6499 3140 ICD10 Worksheet Patient Problems: Problems Problem Status Onset Abdominal pain Acute Anemia Acute
--- NOTE | 2018-04-26 15:12 | SOAPPROG ---
SOAP Progress Note Assessment/Plan: Assessment: Plan: 04/26/18 15:03 A/P 1. Anemia- suspect iron deficiency. Had evaluation of upper tract during ERCP examination. Recommend to proceed with colonoscopy. The risks, benefits, and alternatives were discussed with her in detail. NPO after midnight. Will prep with Golytely. 2. Choledocholithiasis- S/p ERCP. 04/26/18 15:13 Subjective: cc: Follow up with anemia. This is my first encounter with the patient. Complaining of pain on palpation. No fevers or chills. Objective: Vital Signs Temp Pulse Resp BP Pulse Ox 36.8 C 66 14 109/65 94 04/26/18 11:03 04/26/18 11:03 04/26/18 11:03 04/26/18 11:03 04/26/18 11:03 Laboratory Results 04/26/18 04:15 04/26/18 04:15 04/25/18 04/26/18 04/27/18 05:59 05:59 05:59 Intake Total 7499 3150 Output Total 1000 10 Balance 6499 3140 Physical Exam - Physical Exam General Appearance: alert, no apparent distress EENT: No scleral icterus (R), No scleral icterus (L) Respiratory: lungs clear, normal breath sounds, No crackles, No rales, No rhonchi Cardiac/Chest: regular rate, rhythm, No bradycardia, No tachycardia, No diastolic murmur, No systolic murmur Abdomen: soft, distended (minimal), No non-tender (tender in midepigastrium), No guarding, No rebound, No hepatomegaly, No splenomegaly Skin: normal color, warm/dry Extremities: normal inspection Neuro/Psych: alert, normal mood/affect, oriented x 3, No abnormal qa developer II-XII ICD10 Worksheet Patient Problems: Problems Problem Status Onset Abdominal pain Acute Anemia Acute
--- NOTE | 2018-04-26 16:05 | ASMTCMCOM ---
CM Note CM Note Notes: Patient is s/p lap marlin and ERCP for severe cholecystitis and common duct stones. Per surgery, can take clear liquids and d/c on oral abx in 1-2 days. GI is following and has ordered colonoscopy for tomorrow. I anticipate she will d/c home with her family shortly thereafter. CM available if needs change. Current CM discharge plan: home independent Date Signed: 04/26/2018 04:04 PM Electronically Signed By:Priyanka Durham RN
[2018-04-26] MEDS ORDERED: PEG 3350/NA SULF,BICARB,CL/KCL (GAVILYTE-G) 4000 ML BTL PO ONE (20:00)
[2018-04-27] MEDS: HYDROmorphONE/DILAUDID 1 MG/ML INJ IVP PRN ×2 (03:33→07:05)
[2018-04-27] MEDS: D5W 1/2 NS W/ 20 KCl/L 1,000 ML IV SCH (03:35)
--- NOTE | 2018-04-27 09:38 | HOSPPROG ---
Hospitalist Progress Note Assessment/Plan: # cholecystitis, choledocholithiasis s/p cholecystectomy and ERCP with stone removal and stent placement - cont levaquin # ?pyelonephritis - this seems more reactive reactive than primary to me given non-inflammatory urine on UA - GNR noted on UCx - covered by levaquin regardless # fever - d/t above # uncontrolled pain - improving; has not needed dilaudid IV today # Fe defic anemia, severe - s/p 4U PRBC with improvement - planning colonoscopy today # allergic reaction - transfusion reaction labs sent; also could be d/t zosyn - resolved # enlarged uterus with endometrial canal fluid - uterus WNL on pelvic US - reports having her tubes tied 7 years ago - discussed with Dr Roel hicks with outpatient fu # hypoK - resolved Subjective: c/o pain at umbilical incision; did colon prep overnight; on her period per RN Objective: Vital Signs Temp Pulse Resp BP Pulse Ox 36.5 C 69 17 113/59 L 98 04/27/18 08:00 04/27/18 08:00 04/27/18 08:00 04/27/18 08:00 04/27/18 08:00 Laboratory Results 04/26/18 04:15 04/27/18 04:27 04/26/18 04/27/18 04/28/18 05:59 05:59 05:59 Intake Total 3150 1050 Output Total 10 Balance 3140 1050 - Physical Exam Constitutional: no apparent distress, appears nourished Cardiovascular: regular rate and rhythym, no murmur, rub, or gallop Respiratory: no respiratory distress, no rales or rhonchi, clear to auscultation Gastrointestinal: normoactive bowel sounds, soft, non-tender abdomen, other ( incisions ok ) ICD10 Worksheet Patient Problems: Problems Problem Status Onset Abdominal pain Acute Anemia Acute
[2018-04-27] MEDS ORDERED: MAGNESIUM CITRATE 300 ML BOTTLE PO ONE (10:15)
[2018-04-27] MEDS: URSODIOL 300 MG CAP PO SCH ×2 (10:27→22:00)
[2018-04-27] MEDS: PANTOPRAZOLE SODIUM 40 MG TAB PO SCH (10:28)
[2018-04-27] MEDS: oxyCODONE IR 5 MG TAB PO PRN ×4 (10:32→22:01)
--- NOTE | 2018-04-27 11:26 | PDANEPAE ---
ANE History of Present Illness admitted with anemia and transfused 4 units PRBCs ANE Past Medical History - Cardiovascular History Hx Hypertension: No Hx Arrhythmias: No Hx Chest Pain: No Hx Coronary Artery / Peripheral Vascular Disease: No Hx CHF / Valvular Disease: No Hx Palpitations: No - Pulmonary History Hx COPD: No Hx Asthma/Reactive Airway Disease: No Hx Recent Upper Respiratory Infection: No Hx Oxygen in Use at Home: No Hx Sleep Apnea: No Sleep Apnea Screening Result - Last Documented: Negative - Endocrine History Hx Diabetes: No Hypothyroid: No Hyperthyroid: No Obesity: no - Renal History Hx Renal Disorders: No - Liver History Hx Hepatic Disorders: Yes - Other Health History Other Health History: Severe anemia - Chronic Pain History Chronic Pain: No ANE Review of Systems Review of systems is: negative Review of Systems: - Exercise capacity Exercise capacity: >=4 METS METS (RN): 4 METS ANE Patient History - Allergies Allergies/Adverse Reactions: No Known Allergies Allergy (Verified 04/24/18 08:54) - Home Medications Home medications: home medication list seen and reviewed Home Medications: Ibuprofen [Motrin (*)] 200 - 600 mg PO TID PRN 04/24/18 [Last Taken 04/23/18] - NPO status NPO Status: no food or drink >8 hours NPO Since - Liquids (Date): 04/25/18 NPO Since - Liquids (Time): 00:00 NPO Since - Solids (Date): 04/24/18 NPO Since - Solids (Time): 18:00 - Anes Hx Anes Hx: no prior problems - Smoking Hx Smoking Status: Never smoked ANE Labs/Vital Signs - Labs Result Diagrams: 04/26/18 04:15 04/27/18 04:27 - Vital Signs Vital Signs: reviewed preoperatively; see RN documention for details Blood Pressure: 113/59 Heart Rate: 69 Respiratory Rate: 17 O2 Sat (%): 98 Height: 157.48 cm Weight: 70.307 kg ANE Physical Exam - Airway Neck exam: FROM Mallampati Score: Class 2 Mouth exam: normal dental/mouth exam - Pulmonary Pulmonary: no respiratory distress - Cardiovascular Cardiovascular: regular rate and rhythym - ASA Status ASA Status: III ANE Anesthesia Plan Anesthesia Plan: GA with mask
[2018-04-27] MEDS ORDERED: PROPOFOL/EMULSION 500 MG/50 ML BOTTLE IV ONE (11:31)
[2018-04-27] MEDS ORDERED: NALOXONE HCL 0.4 MG/ML INJ IVP PRN (12:08)
--- NOTE | 2018-04-27 12:08 | POSTANESTH ---
Post Anesthetic Evaluation Cardiovascular Status: Normal, Stable Respiratory Status: Normal, Stable Level of Consciousness/Mental Status: Can Participate in Eval Pain Control: Adequate, Prn Tx Ordered Nausea/Vomiting Control: Adequate, Prn Tx Ordered Complications Possibly Related to Anesthesia: None Noted
--- NOTE | 2018-04-27 12:14 | GIREPORT ---
[facility] Surgical Services - Endoscopy Department Patient Name: Nikki Burgos Procedure Date: 04/27/2018 11:26 AM Patient Type: Inpatient Attending MD/ ER Physician: Elliot Dean MD Procedure: Colonoscopy Indications: Iron deficiency anemia Patient Profile: 37 year old female presents for evaluation of iron deficiency anemia. Providers: Elliot Dean MD Medicines: Monitored Anesthesia Care Complications: No immediate complications. Estimated blood loss: None. Description of Procedure: After obtaining informed consent, the scope was passed under direct vis ion. Throughout the procedure, the patient's blood pressure, pulse, and oxyg en saturations were monitored continuously. The Colonoscope with irrigatio n channel was introduced through the anus and advanced to the terminal il eum. The colonoscopy was performed without difficulty. The patient tolerated the procedure well. The quality of the bowel preparation was good. The term inal ileum, ileocecal valve, appendiceal orifice, and rectum were photograph ed. Findings: The perianal and digital rectal examinations were normal. Pertinent negatives include no palpable rectal lesions. The terminal ileum appeared normal. The entire examined colon appeared normal. Estimated Blood Loss: Estimated blood loss: none. Post Op Diagnosis: - The examined portion of the ileum was normal. - The entire examined colon is normal. - No specimens collected. - Etiology? No cause of anemia found. Recommend fo follow hemoglobin an d iron panel as outpatient. If doesnt increase, would consider capsule endoscopy as outpatient. GI will sign off. Thank you for the consultati on! Recommendation: - Discharge patient to home (with escort). - The signs and symptoms of potential delayed complications were discus sed with the patient. - Patient has a contact number available for emergencies. - Return to normal activities tomorrow. - Resume previous diet. - Continue present medications. - GI will sign off. - Thank you for the consultation! Attending Participation: I personally performed the entire procedure. Elliot Dean MD Elliot Dean MD 04/27/2018 12:14:34 PM This report has been signed electronicallyElliot Dean MD Number of Addenda: 0 Note Initiated On: 04/27/2018 11:26 AM Total Procedure Duration Time 0 hours 18 minutes 32 seconds [email or web address]
--- NOTE | 2018-04-27 13:13 | SOAPPROG ---
SOAP Progress Note Assessment/Plan: Assessment: STATUS POST LAP CHOLY AN ERCP FOR SEVERE CHOLECYSTITIS AND COMMON DUCT STONES/ STENT IN PLACE HEMATOCRIT STABLE/WBC 9 K/BILIRUBIN 8 ALTHOUGH THE PATIENT IS NONICTERIC/LFTS IMPROVED HEENT NONICTERIC WITHOUT ADENOPATHY CHEST CLEAR AND SYMMETRIC COR REGULAR RHYTHM ABDOMEN SOFT NONTENDER AFEBRILE/VITAL SIGNS STABLE/URINE OUTPUT ADEQUATE Plan: CLEAR LIQUIDS AND CONTINUE ANTIBIOTICS/HOME IN 1-2 DAYS ON ORAL ANTIBIOTICS 04/26/18 13:27 04/27/18 13:12 MUCH IMPROVED TODAY/AFEBRILE/VITAL SIGNS STABLE ABDOMEN SOFT NONDISTENDED AND NONTENDER/WOUNDS HEALING WELL TOLERATING P.O. WELL PLAN: A COLONOSCOPY TODAY FOR EVALUATION OF HER ANEMIA AND THEN PROBABLY HOME DEPENDING ON THE COLONOSCOPY FINDINGS Objective: Vital Signs Temp Pulse Resp BP Pulse Ox 36.8 C 63 17 122/75 H 96 04/27/18 12:17 04/27/18 12:17 04/27/18 12:17 04/27/18 12:17 04/27/18 12:17 Laboratory Results 04/26/18 04:15 04/27/18 04:27 04/26/18 04/27/18 04/28/18 05:59 05:59 05:59 Intake Total 3150 1050 400 Output Total 10 Balance 3140 1050 400 ICD10 Worksheet Patient Problems: Problems Problem Status Onset Abdominal pain Acute Anemia Acute
[2018-04-28 05:09] LABS: PLATELET COUNT 354 10^3/uL (150-400)
[2018-04-28 07:27] VITALS: BP 107/64
[2018-04-28] MEDS: ACETAMINOPHEN 325 MG TAB PO PRN (08:10)
[2018-04-28] MEDS: PANTOPRAZOLE SODIUM 40 MG TAB PO SCH (08:10)
[2018-04-28] MEDS: URSODIOL 300 MG CAP PO SCH (08:11)
--- NOTE | 2018-04-28 09:55 | ASMTDCNOTE ---
Case Management Discharge Discharge Order Complete? Answers: Yes Patient to Obtain Answers: via Family Medications Transportation Arranged Answers: Family/Friends Discharge Comments Notes: CM conferred with MD. Pt is being discharged independently. No CM needs identified. Family to transport. Date Signed: 04/28/2018 09:54 AM Electronically Signed By:CHADD Raymond
--- NOTE | 2018-04-28 09:56 | ASDISCHSUM ---
Discharge Information Plan Status:Home with No Needs Medically Cleared to Leave: Discharge Date: D/C Disposition:Home, Routine, Self-Care ADT D/C Disposition:Home, Routine, Self-Care Projected Discharge Date:04/28/2018 12:00 AM Transportation at D/C:Family Discharge Delay Reason: Follow-Up Date:04/28/2018 12:00 AM Discharge Slot: Final Diagnosis: Placement Information Patient Contact Information Contact Name:DONY Relationship:Jignesh Address:[address] City:[place] Alternate Phone: State/Zip Code:[place] [address] Email: Financial Information Financial Class:Self-Pay Primary Plan Desc:SP UNINSURED Primary Plan Number:99 Secondary Plan Desc: Secondary Plan Number: Assessment Information LACE LACE Length of stay for Answers: 4-6 days current admission Acuity / Level of Answers: Yes Care: Did the patient have an inpatient admission? # of Emergency department Answers: 1-2 visits in the last 6 months Score: 8 Date Signed: 04/28/2018 09:54 AM Electronically Signed By:CHADD Raymond [facility] Initial CM Assessment Living Arrangements What is your living Answers: With Other Relative(s) arrangement? Who do you live with? Type Of Residence What kind of residence do Answers: Apartment you live in? Discharge Plan Comments Coordination Status Comments Notes: Patient is a 37yo female, Uzbek speaking,who presents with severe anemia and likely cholangitis. Patient is self-pay, Lily notified to screen for emergency Medicaid. No therapies ordered at this time. D/C plan TBD. CM will follow. Date Signed: 04/24/2018 03:44 PM Electronically Signed By:Elizabeth Brown LCSW [facility] CM Progress Note CM Note CM Note Notes: Patient is s/p lap marlin and ERCP for severe cholecystitis and common duct stones. Per surgery, can take clear liquids and d/c on oral abx in 1-2 days. GI is following and has ordered colonoscopy for tomorrow. I anticipate she will d/c home with her family shortly thereafter. CM available if needs change. Current CM discharge plan: home independent Date Signed: 04/26/2018 04:04 PM Electronically Signed By:Priyanka Durham RN Case Management Discharge Plan Note Case Management Discharge Discharge Order Complete? Answers: Yes Patient to Obtain Answers: via Family Medications Transportation Arranged Answers: Family/Friends Discharge Comments Notes: CM conferred with . Pt is being discharged independently. No CM needs identified. Family to transport. Date Signed: 04/28/2018 09:54 AM Electronically Signed By:CHADD Raymond Intervention Information
--- NOTE | 2018-04-28 12:25 | GDS ---
[f rep st] DISCHARGE SUMMARY ALL DIAGNOSES: 1. Cholecystitis. 2. Choledocholithiasis. 3. Suspected secondary pyelonephritis. 4. Fevers. 5. Uncontrolled pain. 6. Iron-deficiency anemia. 7. Allergic reaction. 8. Enlarged uterus. 9. Heavy menses. 10. Hypokalemia. ALL PROCEDURES: 1. Cholecystectomy by Dr. Arechiga on 04/25/2018. 2. EGD and ERCP on 04/25/2018, by Dr. Ramos. 3. Colonoscopy by Dr. Dean on 04/27/2018. HOSPITAL COURSE: 37-year-old female presented with abdominal pain. Imaging findings were consistent with cholecystitis as well as choledocholithiasis. She underwent initially a cholecystectomy during which intraoperative cholangiogram showed multiple filling defects in her common bile duct. Because of this, she underwent an ERCP with stent placement. All stones were not able to be removed. She w ill need the stent removed in 6 weeks, has been started on Ursodiol to soften the stones in the time being. She was initially quite anemic on presentation with a presenting hemoglobin of 5.3. She was transfused 4 units packed red blood cells with significant improvement. She underwent upper as well as lower endoscopy to evaluate the etiology of this; none was found on these examinations. Suspect t hat this was due to heavy menses. She will follow up with her primary care doctor at [facility] to further evaluate. She did have a borderline enlarged uterus, although on her transvaginal ultras ound, this was within the normal range. Again, she will follow up with [facility] for managemen t of her menses. I will start her on Ursodiol to soften her stones; she will be given a prescription for 10 days of ox ycodone, #10, for ongoing postoperative pain; 2 additional days of Levaquin given the severity of her illness. I saw her, with the help of a fast food delivery driver on the day of discharge. BILLING: I spent more than 30 minutes on the day of discharge coordinating care. /[id number]/MODL
--- NOTE | 2018-04-28 13:30 | GOP ---
[f rep st] OPERATIVE REPORT DATE OF OPERATION: 04/25/2018 SURGEON: Teddy Arechiga MD LEAD ORACLE DEVELOPER: None. ANESTHESIA: General endotracheal. ANESTHESIOLOGIST: Lotus Tamez MD. PREOPERATIVE DIAGNOSIS: Cholecystitis. POSTOPERATIVE DIAGNOSIS: Acute on chronic cholecystitis with choledocholithiasis, recurrent umbilical hernia PROCEDURE PERFORMED: 1. Laparoscopic cholecystectomy with intraoperative cholangiogram. 2. Recurrent umbilical hernia repair. FINDINGS: Edematous adhesed thick gallbladder wall consistent with acute on chronic cholecystitis. A cholangiogram was performed, which showed multiple filling defects within the common duct. However, there was still spillage of contrast into the duodenum around these filling defects. SPECIMENS: Gallbladder. ESTIMATED BLOOD LOSS: 5 cc. DESCRIPTION OF PROCEDURE: The patient was greeted in the preoperative suite with the aid of an bilingual interpreter. Consent was reviewed and signed. She was then brought back to the operative suite and placed on the OR table in a supine position. After all anesthesia machines including SCDs were on and functioning , a World Health [employer] timeout was performed. After successful induction of general anesthesia, the patient's abdomen was prepped and draped in typical sterile fashion. I commenced the procedure by making an infraumbilical cutdown. The patient had an umbilical hernia, which was successfully reduced. The defect was approximately 1.5 cm. Through this, I inserted my 12 mm Visiport and obtained pneumoperitoneum to 15 mmHg, which was well tolerated by the patient. Once successfully in the abdomen, I placed 3 additional 5 mm trocars, 1 in the subxiphoid and 2 in the right upper quadrant, both under direct visualization. I identified the gallbladder, which had an edematous wall. I successfully retracted it over the liver edge. Dissection at the infundibulum identified 2, and only 2, structures leading towards the gallbladder. The artery was first successfully taken. The cystic duct was quite dilated, and it was difficult at first to tell the junction between the cystic and common hepatic duct. In order to facilitate this, I skeletonized the remainder of the gallbladder off the liver bed. Using the Fernando clamp, I successfully obtained a cholangiogram, which successfully delineated both the cystic duct and common hepatic duct, as well as multiple filling defects within the common bile duct. In order to amputate the gallbladder off the cystic hepatic confluence, I successfully amputated it using a single fire of the Endo- LILY white load stapler. It was then placed in an EndoCatch bag and removed. I did have to enlarge my infraumbilical port site in order to even get the specimen out as it was completely full of large stones. After this was done, I re-achieved pneumoperitoneum. I irrigated the right upper quadrant. I interrogated both my staple line and clip sites, which were clean, dry, and hemostatic. I placed local anesthesia into all port sites and evacuated my pneumoperitoneum. My infraumbilical and recurrent umbilical hernia site were then reapproximated with a running #1 PDS suture, noting excellent fascial reapproximation. The skin was then closed with Monocryl. Dermabond was placed. The patient was then extubated in the operative suite and taken to the PACU in satisfactory condition. DRAINS: None. COUNTS: All counts were reported as correct x2. /[id number]/MODL MTDD
== END 2018-04-28 11:15 | disposition home or self-care (01) | DRG 418 ==
LOC: F2N 04-24 06:33 → F3E 04-25 08:55 → F3N 04-25 12:59
PROVIDERS: ADMIT Student in an Organized Health Care Education/Training Program; ATTEND Student in an Organized Health Care Education/Training Program
PROC: 30233N1 Transfusion of Nonautologous Red Blood Cells into Peripheral Vein, Percutaneous Approach (ICD-10-PCS; 2018-04-24)
PROC: 0FT44ZZ Resection of Gallbladder, Percutaneous Endoscopic Approach (ICD-10-PCS; principal; 2018-04-25 07:15)
PROC: 0F798DZ Dilation of Common Bile Duct with Intraluminal Device, Via Natural or Artificial Opening Endoscopic (ICD-10-PCS; 2018-04-25 07:15)
PROC: 0DB98ZX Excision of Duodenum, Via Natural or Artificial Opening Endoscopic, Diagnostic (ICD-10-PCS; 2018-04-25 07:15)
PROC: 0DJD8ZZ Inspection of Lower Intestinal Tract, Via Natural or Artificial Opening Endoscopic (ICD-10-PCS; 2018-04-27)
DX: K80.46 Calculus of bile duct with acute and chronic cholecystitis without obstruction (principal); N12 Tubulo-interstitial nephritis, not specified as acute or chronic; R21 Rash and other nonspecific skin eruption; T45.8X5A Adverse effect of other primarily systemic and hematological agents, initial encounter; K42.9 Umbilical hernia without obstruction or gangrene; D50.9 Iron deficiency anemia, unspecified; E86.9 Volume depletion, unspecified; E87.6 Hypokalemia; N85.2 Hypertrophy of uterus; N92.0 Excessive and frequent menstruation with regular cycle
CPT/HCPCS: 82435-PO; 82565-PO; 82607-90; 82947-PO; 84132-PO; 84295-PO; 84520-PO; 85014-ER; 96365; 97161-GP; C2625; J0171; J0330; J1100; J1170; J1200; J1956; J2370; J2405; J2543; J2550; J2704; J2710; J2765; J2780; J2930; J3010; J3480; P9016; Q9961; Q9967